=== PATIENT | male | born 1960 | race Caucasian/White ===

== ENCOUNTER 2024-04-10 03:03 | Inpatient (IN) | payer OTHER ==
[~2024-04-10] VITALS: Ht 182.9 cm; Wt 133.1 kg
[2024-04-10 03:10] VITALS: O2SAT 94
[2024-04-10] MEDS: SODIUM CHLORIDE 0.9% 1,000 ML IV ONE (03:52)
[2024-04-10 04:22] LABS: MEAN PLATELET VOLUME 7.4 fl (7.4-10.4)
[2024-04-10 04:24] LABS: HEMATOCRIT. 43.5 % (42.0-52.0); HEMOGLOBIN. 14.9 g/dL (14.0-18.0); MEAN CORPUSCULAR HEMOGLOBIN 25.9 pg (28.0-32.0); MEAN CORPUSCULAR HGB CONC 34.2 g/dL (31.0-37.0); MEAN CORPUSCULAR VOLUME 75.7 fL (80.0-94.0); PLATELET 311 x1000/uL (130-400); RED BLOOD CELL COUNT 5.74 mill/uL (4.7-6.1); RED CELL DISTRIBUTION WIDTH 17.5 % (11.6-14.6); WHITE BLOOD COUNT 9.5 x1000/uL (4.5-11.0)
[2024-04-10 04:25] LABS: INR 0.9; PROTHROMBIN TIME 10.3 sec (9.6-11.0)
[2024-04-10 04:30] LABS: DIFFERENTIAL COMMENT 1
[2024-04-10 04:43] LABS: CLARITY URINE CLEAR (CLEAR); COLOR URINE YELLOW (YELLOW); GLUCOSE URINE 1+ (NEGATIVE); KETONES URINE NEGATIVE (NEGATIVE); LEUKOCYTE ESTERASE URINE NEGATIVE (NEGATIVE); NITRITE URINE NEGATIVE (NEGATIVE); OCCULT BLOOD URINE NEGATIVE (NEGATIVE); PROTEIN URINE NEGATIVE (NEGATIVE); SPECIFIC GRAVITY URINE 1.015 (1.005-1.030); UROBILINOGEN URINE 0.2 E.U./dL (0.2-1.0)
[2024-04-10 04:53] LABS: *AMPHETAMINES SCREEN URINE NEGATIVE (NEGATIVE); *BARBITURATES SCREEN URINE NEGATIVE (NEGATIVE); *BENZODIAZEPINES SCREEN URINE NEGATIVE (NEGATIVE); *COCAINE SCREEN URINE NEGATIVE (NEGATIVE); CANNABINOID URINE SCREEN NEGATIVE (NEGATIVE); ECSTASY MDMA SCREEN URINE NEGATIVE (NEGATIVE); METHADONE URINE SCREEN NEGATIVE (NEGATIVE); OPIATES URINE SCREEN NEGATIVE (NEGATIVE); PHENCYCLIDINE URINE SCREEN NEGATIVE (NEGATIVE)
[2024-04-10 04:56] LABS: CHLORIDE 101 mEq/L (98-107); POTASSIUM 3.4 mEq/L (3.5-5.1); SODIUM 137 mEq/L (136-145)
[2024-04-10 04:57] LABS: CARBON DIOXIDE 31 mEq/L (21-32)
[2024-04-10 04:58] LABS: CALCIUM 9.5 mg/dL (8.7-10.4)
[2024-04-10 05:02] LABS: CREATININE 1.5 mg/dL (0.6-1.3); GLUCOSE 98 mg/dL (70-105); UREA NITROGEN BLOOD 34 mg/dL (9-23)
[2024-04-10 05:03] LABS: TROPONIN I HIGH SENSITIVITY 11 ng/L (3.0-53)
[2024-04-10 05:05] LABS: ETHANOL BLOOD < 10 mg/dL (<10)
[2024-04-10] MEDS: ASPIRIN 325MG TABLET PO ONE (05:55)
[2024-04-10] MEDS ORDERED: IOHEXOL-350 100 ML BOTTLE ONE (06:30)
[2024-04-10 07:41] LABS: WBC URINE 0-2 /hpf (0-2)
[2024-04-10 07:42] LABS: BACTERIA URINE NONE SEEN; RBC URINE NONE SEEN /hpf (0-2); SQUAMOUS EPITHELIAL CELL URINE NONE SEEN /lpf (RARE/1+)
[2024-04-10 09:01] VITALS: BP 132/79
[2024-04-10 09:52] LABS: ANISOCYTOSIS 1+; MICROCYTOSIS 1+; PLATELET ESTIMATE NORMAL
[2024-04-10 09:55] VITALS: PULSE 93; RESP 21; TEMP 97.5
[2024-04-10] MEDS ORDERED: SILD20TA MT (10:12)
[2024-04-10] MEDS ORDERED: SPIR25TA6 MT (10:12)
[2024-04-10] MEDS ORDERED: POTA-205 MT (10:12)
[2024-04-10] MEDS ORDERED: BUME1TAB8 MT (10:12)
[2024-04-10] MEDS ORDERED: DAPA10TA MT (10:12)
[2024-04-10] MEDS ORDERED: ASPI-1497 MT (10:12)
[2024-04-10] MEDS ORDERED: TACR1CAP MT (10:12)
[2024-04-10] MEDS ORDERED: PRED5TAB MT (10:12)
[2024-04-10] MEDS ORDERED: SIRO1TAB5 MT (10:12)
[2024-04-10] MEDS ORDERED: FOLI0.8T23 MT (10:12)
[2024-04-10] MEDS ORDERED: INSU100C6 SQ (10:12)
[2024-04-10] MEDS ORDERED: FENO145T25 MT (10:12)
[2024-04-10] MEDS ORDERED: EZET10TA81 MT (10:12)
[2024-04-10] MEDS ORDERED: ROSU40TA MT (10:12)
== END 2024-04-10 11:00 | disposition left against medical advice (07) | DRG 45 ==
LOC: ER 03:03 → 5EST 05:41 → ER 09:41
PROVIDERS: ADMIT Internal Medicine; ATTEND Internal Medicine
DX: I63.9 Cerebral infarction, unspecified (principal); Z94.1 Heart transplant status; I95.9 Hypotension, unspecified; E11.9 Type 2 diabetes mellitus without complications; E78.00 Pure hypercholesterolemia, unspecified; I51.7 Cardiomegaly; Z79.899 Other long term (current) drug therapy; Z53.29 Procedure and treatment not carried out because of patient's decision for other reasons; Z79.4 Long term (current) use of insulin; R29.703 NIHSS score 3
CPT/HCPCS: 36415; 70496; 70498; 71045; 80048; 80305; 80320; 81003; 83605; 84484; 85025; 86850; 86900; 93005; 99291; J7030; Q9967; G0480